=== PATIENT | male | born 1995 | race Caucasian/White ===

== ENCOUNTER 2018-05-22 10:56 | Emergency (ER) | payer OTHER ==
[~2018-05-22] VITALS: Ht 180.3 cm; Wt 113.4 kg
--- NOTE | ~2018-05-22 | CON ---
[address] [address] CONSULTATION Name: JODY OAKLEY [id number] Admission: 05/22/18 Attend Phys: Discharge: 05/22/18 Date of : 89 Report #: [id number] THIS REPORT FOR: //name// CC: Kathe Curtis [employer] physician/PCP EMERGENCY ROOM CONSULT HISTORY OF PRESENT ILLNESS: The patient is a 23-year-old right hand dominant gentleman that has an injury where a winch struck his left hand across the ring finger and cut the tip of the finger off. He did present here with another grave digger and he is here to be evaluated for this fingertip amputation. It was noted that the fingertip was completely amputated. He says he does have an allergy to PENICILLIN, causes him to have hives. The patient otherwise has no major past medical or surgical histories. He is a very pleasant gentleman, attention to his fingers at exam. He had an x-ray taken and demonstrate no gross fractures are seen. Fingertip amputation site is seen though on the radiographs. CLINICAL IMPRESSION: There is a fingertip that he brought in with him, that part that he cut off. There is a little bit of bone residual in that skin flap. He does demonstrate somewhat of a transverse, slightly oblique laceration through the distal finger and this still has some of the nail bed that is present. The patient does not have any other gross findings noted. At this point in time, I discussed with this gentleman that I would first like to go ahead and clean the finger. He did have a digital block prior to my arrival and it was completely numb. The patient also at this point in time understands that I would not do any V-Y type flaps or anything like that yet, because of a crush type injury, we are not sure what the skin around it will do. He was in agreement with that as well. I did clean off the fingertip he brought in, debrided it down to a nice smooth skin flap surface with some good subcutaneous tissue still present. We did a Hibiclens scrub across the entire finger region for 5 minutes, copiously irrigated with normal saline and then I reattached that fingertip skin flap. This patient tolerated the procedure quite nicely. Xeroform, Judy dressing was applied to the finger. He tolerated it quite nicely. I did discuss with this patient and the person that is with him that this fingertip closures sometimes work, that skin will heal back down because it is very hyperemic in that area with good vascular supply versus potentially does not heal, we will have to do a V-Y flap. He understands that completely. I will see him back in one [place] [address] CONSULTATION Name: JODY OAKLEY Mariya Room: [facility] Diego#: [id number] Admission: 05/22/18 Attend Phys: Discharge: 05/22/18 Date of : 89 Report #: [id number] It is our pleasure to take care of this very pleasant gentleman today. By: [id number] Bhat DO /miguel angel
[~2018-05-22 10:56] MED LIST: SEROQUEL 25 MG25 M1 PO
[2018-05-22] MEDS ORDERED: IBUPROFEN 800800 M1 PO (13:56)
[2018-05-22] MEDS ORDERED: NORCO 5-325 TA1 EACH PO (13:56)
[2018-05-22] MEDS ORDERED: KEFLEX500 M1 PO (13:57)
[2018-05-22 14:25] VITALS: BP 127/72
== END 2018-05-22 14:25 | disposition home or self-care (01) ==
LOC: M.ERS 10:56
DX: S68.115A Complete traumatic metacarpophalangeal amputation of left ring finger, initial encounter (principal); F17.210 Nicotine dependence, cigarettes, uncomplicated; Z88.0 Allergy status to penicillin; W26.8XXA Contact with other sharp object(s), not elsewhere classified, initial encounter; Y93.89 Activity, other specified; Y92.89 Other specified places as the place of occurrence of the external cause; Y99.8 Other external cause status